=== PATIENT | female | born 1965 | race Caucasian/White ===

== ENCOUNTER 2018-07-01 15:55 | Emergency (ER) | payer OTHER ==
[2018-07-01 17:03] VITALS: BP 126/78
--- NOTE | 2018-07-01 17:18 | UC ---
Ear Complaint HPI - HPI Summary HPI Summary: 52 y/o female presents to the urgent care c/o B/L ear pain w/ a mild ringing sensation for the past week. Pt reports she had an URI about 3 weeks ago and Rx antibiotics for 1 week. She feels mild decrease hearing w/ pressure. She has mild nasal congestion. Pain is 2/10. Pt denies fever, dizziness, SOB, chest pain. abdominal pain, JOSEPH. - History of Current Complaint Chief Complaint: UCEar Stated Complaint: EAR ACHE Time Seen by Provider: 07/01/18 17:06 Hx Obtained From: Patient ?: No Onset/Duration: Gradual Onset, Lasting Weeks - 1 week, Still Present Severity Initially: Mild Severity Currently: Mild Pain Intensity: 3 Pain Scale Used: 0-10 Numeric Alleviating Factors: OTC Meds Associated Signs/Symptoms: Positive: URI Symptoms - Allergies/Home Medications Allergies/Adverse Reactions: Allergies Allergy/AdvReac Type Severity Reaction Status Date / Time No Known Allergies Allergy Verified 07/01/18 17:03 Home Medications: Home Medications Levothyroxine TAB* [Synthroid 25 MCG TAB*] 07/01/18 [History Confirmed 07/01/18 ] buPROPion TAB* [Wellbutrin TAB*] 07/01/18 [History] PMH/Surg Hx/FS Hx/Imm Hx Previously Healthy: Yes Endocrine History: Hypothyroidism - Surgical History Surgical History: None - Family History Known Family History: Positive: None - Pt denies FMHX - Social History Occupation: Employed Full-time Lives: With Family Alcohol Use: Rare Substance Use Type: None Smoking Status (MU): Current Every Day Smoker Type: Cigarettes Amount Used/How Often: 1/2 PPD Review of Systems All Other Systems Reviewed And Are Negative: Yes Constitutional: Positive: Negative Skin: Positive: Negative Eyes: Positive: Negative ENT: Positive: Ear Ache - B/L ear pain adn ringing of the ears, Nasal Discharge - clear, Sinus Congestion Respiratory: Positive: Negative Cardiovascular: Positive: Negative Gastrointestinal: Positive: Negative Genitourinary: Positive: Negative Motor: Positive: Negative Neurovascular: Positive: Negative Musculoskeletal: Positive: Negative Neurological: Positive: Negative Psychological: Positive: Negative Is Patient Immunocompromised?: No Physical Exam - Summary Physical Exam Summary: Vital signs: reviewed General: well developed, well nourished female sitting in the examining table w/ o any apparent distress Skin: [place], warm and dry, no evidence of atopic dermatitis, psoriasis, seborrhea. HEENT: -Head: atraumatic, non tender; no scalp dermatitis. -Eyes: sclera and conjunctiva clear, PERRLA, EOMI -Ears: no pre- or postauricular lymphadenopathy or erythema; RT external ear canal c.ear, Rt TM injected w/ erythema with erythema. Left external ear canal clear , LF TM WNL. -Nose/Face: erythematous and edematous nasal mucosa with clear rhinorrhea, no frontal or maxillary sinus tender to palpation. -Mouth/Throat: Mucous membrane moist, posterior pharynx clear, no erythema or exudates. Neck: supple, FROM, nontender, no lymphadenopathy, no meningismus. Chest: Clear to auscultation, normal breath sounds Abd: soft, Bowel sounds active, Nontender. Back: no spinal or CVAT Neuro: A&O x4, GCS 15, no focal neuro deficits, normal behavior for age. Triage Information Reviewed: Yes Vital Signs: Initial Vital Signs Temp 97.6 F 07/01/18 16:59 Pulse 61 07/01/18 16:59 Resp 16 07/01/18 16:59 BP 126/78 07/01/18 16:59 Pulse Ox 96 07/01/18 16:59 Ear Complaint Course/Dx - Course Course Of Treatment: 52 y/o female presents to the urgent care c/o B/L ear pain w/ a mild ringing sensation for the past week. Pt reports she had an URI about 3 weeks ago and Rx antibiotics for 1 week. She feels mild decrease hearing w/ pressure. She has mild nasal congestion. Pain is 2/10. Pt denies fever, dizziness, SOB, chest pain. abdominal pain, JOSEPH. Hx obtained. Pt w/ RT otitis media on examination. Pt Rx Amoxicillin PO and flonase as directed below. Pt advised to f/u w/her PCP or ENT Dr Hameed for further management on her symptoms if not improvement. D/C instructions explained. Pt understood and agreed w/ plan of care . - Differential Dx/Diagnosis Differential Diagnosis/HQI/PQRI: Cerumen Impaction, Otitis Externa, Otitis Media , Perforated TM, URI, Other - sinusitis Provider Diagnosis: Right otitis media, Rhinosinusitis Discharge - Sign-Out/Discharge Documenting (check all that apply): Patient Departure - D/C home All imaging exams completed and their final reports reviewed: No Studies - Discharge Plan Condition: Stable Disposition: HOME Prescriptions: Amoxicillin PO (*) [Amoxicillin 875 MG (*)] 875 mg PO BID #14 tab Fluticasone NASAL SPRAY 50MCG* [Flonase NASAL SPRAY 50MCG*] 2 spray BOTH NARES DAILY #1 btl Patient Education Materials: Ear Infection (ED) Referrals: Anton Hameed MD [Medical Doctor] - 1 Week Greg Bolton MD [Primary Care Provider] - 3 Days Additional Instructions: 1- Please increase fluid intake and rest. take full course of antibiotic to avoid resistance 2-Use Flonase as directed to help drain fluid. Also buy saline drops to clear sinuses 3- F/U w/ your PCP orn ENT Dr Hameed in 1 week if symptoms do not improve for further management and treatment - Billing Disposition and Condition Condition: STABLE Disposition: Home
== END 2018-07-01 17:41 | disposition home or self-care (01) ==
LOC: UCEAST 15:55
DX: H66.91 Otitis media, unspecified, right ear (principal); J32.9 Chronic sinusitis, unspecified; E03.9 Hypothyroidism, unspecified; F17.210 Nicotine dependence, cigarettes, uncomplicated
CPT/HCPCS: 99202; G0463

== ENCOUNTER 2018-07-26 14:49 | Emergency (ER) | payer OTHER ==
--- OUTSIDE RECORDS SUMMARY | 2018-07-26 15:40 | XMS REPORT | Continuity of Care Document ---
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 Tobacco Use Start: Unknown Current Cigarette Smoker 1/2 Pack Daily Tobacco Use Start: Unknown Never Smoked Cigars Tobacco Use Start: Unknown Never Smoked A Pipe Smokeless Tobacco Never Used Smokeless Tobacco ETOH Use Currently rarely consumes alcohol Tobacco Use Start: Unknown Patient is a current smoker, smokes every day Smoking Status Reviewed: 07/14/18 Patient is a current smoker, smokes every day Allergies, Adverse Reactions, Alerts Description No Known Drug Allergies Medications Medication Date Status Form Strength Qnty SIG Indications Ordering Provider Medrol 07/05/ Active TBPK 4mg 1pack take as Anton Hameed MD Bupropion HCL / Active Tablets ER 150mg Take 1 Unknown ER (SR) 0000 12HR Tablet By Mouth Two Times Daily Levothyroxine / Active Tablets 75mcg Take 1 Unknown Sodium 0000 Tablet By Mouth Every Day Before Breakfast Fluticasone / Active Suspension 50mcg/Act [place] 2 Unknown Propionate 0000 Sprays Into Each Nostril One Time Daily Amoxicillin / Active Tablets 875mg Take 1 Unknown 0000 Tablet By Mouth Two Times Daily For 7 Days Immunizations Description No Information Available Vital Signs Date Vital Result Comment 07/14/2018 10:06am Weight 128.00 lb Weight 58.061 kg Height 63 inches 5'3" Height in cm's 160.0 cm BMI (Body Mass Index) 22.7 kg/m2 07/05/2018 9:27am Weight 128.00 lb Weight 58.061 kg Height 63 inches 5'3" Height in cm's 160.0 cm BMI (Body Mass Index) 22.7 kg/m2 Results Description No Information Available Procedures Description No Information Available Encounters Type Date Location Provider Dx Diagnosis Office Visit 07/14/2018 Betty,After Anton Willard H93.13 Tinnitus, 10:15a 06/14/07 MD Yoseph bilateral H69.93 Unspecified Eustachian tube disorder, bilateral Office Visit 07/05/2018 9:30a Betty,Eliazar 06/14/07 Anton Willard H93.13 Tinnitus, MD Yoseph bilateral H69.93 Unspecified Eustachian tube disorder, bilateral Plan of Treatment No Information Available
--- OUTSIDE RECORDS SUMMARY | 2018-07-26 15:40 | XMS REPORT | Continuity of Care Document ---
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 Tobacco Use Start: Unknown Current Cigarette Smoker 1/2 Pack Daily Tobacco Use Start: Unknown Never Smoked Cigars Tobacco Use Start: Unknown Never Smoked A Pipe Smokeless Tobacco Never Used Smokeless Tobacco ETOH Use Currently rarely consumes alcohol Tobacco Use Start: Unknown Patient is a current smoker, smokes every day Smoking Status Reviewed: 07/05/18 Patient is a current smoker, smokes every day Allergies, Adverse Reactions, Alerts Description No Known Drug Allergies Medications Medication Date Status Form Strength Qnty SIG Indications Ordering Provider Bupropion HCL // Active Tablets ER 150mg Take 1 Unknown ER (SR) 0000 12HR Tablet By Mouth Two Times Daily Levothyroxine 00/ Active Tablets 75mcg Take 1 Unknown Sodium 0000 Tablet By Mouth Every Day Before Breakfast Fluticasone 00/ Active Suspension 50mcg/Act [place] 2 Unknown Propionate 0000 Sprays Into Each Nostril One Time Daily Amoxicillin // Active Tablets 875mg Take 1 Unknown 0000 Tablet By Mouth Two Times Daily For 7 Days Immunizations Description No Information Available Vital Signs Date Vital Result Comment 07/05/2018 9:27am Weight 128.00 lb Weight 58.061 kg Height 63 inches 5'3" Height in cm's 160.0 cm BMI (Body Mass Index) 22.7 kg/m2 Results Description No Information Available Procedures Description No Information Available Encounters Type Date Location Provider Dx Diagnosis Office Visit 07/05/2018 Betty,Eliazar Willard H93.13 Tinnitus, 9:30a 06/14/07 MD Yoseph bilateral H69.93 Unspecified Eustachian tube disorder, bilateral Plan of Treatment No Information Available
--- OUTSIDE RECORDS SUMMARY | 2018-07-26 15:40 | XMS REPORT | Continuity of Care Document ---
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 Tobacco Use Start: Unknown Current Cigarette Smoker 1/2 Pack Daily Tobacco Use Start: Unknown Never Smoked Cigars Tobacco Use Start: Unknown Never Smoked A Pipe Smokeless Tobacco Never Used Smokeless Tobacco ETOH Use Currently rarely consumes alcohol Tobacco Use Start: Unknown Patient is a current smoker, smokes every day Smoking Status Reviewed: 07/22/18 Patient is a current smoker, smokes every day Allergies, Adverse Reactions, Alerts Description No Known Drug Allergies Medications Medication Date Status Form Strength Qnty SIG Indications Ordering Provider Bupropion HCL / Active Tablets ER 150mg Take 1 Unknown ER (SR) 0000 12HR Tablet By Mouth Two Times Daily Levothyroxine / Active Tablets 75mcg Take 1 Unknown Sodium 0000 Tablet By Mouth Every Day Before Breakfast Fluticasone / Active Suspension 50mcg/Act [place] 2 Unknown Propionate 0000 Sprays Into Each Nostril One Time Daily Medrol 07/05/ Hx TBPK 4mg 1pack take as Anton Hameed 07/22/ MD [place] Amoxicillin / Hx Tablets 875mg Take 1 Unknown 0000 - Tablet By Two 2019 Times Daily For 7 Days Immunizations Description No Information Available Vital Signs Date Vital Result Comment 07/22/2018 10:22am Weight 128.00 lb Weight 58.061 kg Height 63 inches 5'3" Height in cm's 160.0 cm BMI (Body Mass Index) 22.7 kg/m2 07/14/2018 10:06am Weight 128.00 lb Weight 58.061 kg Height 63 inches 5'3" Height in cm's 160.0 cm BMI (Body Mass Index) 22.7 kg/m2 07/05/2018 9:27am Weight 128.00 lb Weight 58.061 kg Height 63 inches 5'3" Height in cm's 160.0 cm BMI (Body Mass Index) 22.7 kg/m2 Results Description No Information Available Procedures Date Code Description Status 07/14/2018 60029 Tympanometry Completed 07/14/2018 80711 Comprehensive Audiogram Completed Encounters Type Date Location Provider Dx Diagnosis Office Visit 07/22/2018 Seney,After Stephy Au H69.93 Unspecified 10:15a 06/14/07 SHARON Eustachian tube disorder, bilateral H93.13 Tinnitus, bilateral G50.1 Atypical facial pain R53.83 Other fatigue R63.4 Abnormal weight loss Office Visit 07/14/2018 10:15a Betty,After 06/14/07 Anton Willard H93.13 Yoseph Uribe MD bilateral H69.93 Unspecified Eustachian tube disorder, bilateral Office Visit 07/05/2018 9:30a Betty,After 06/14/07 Anton Morris3.13 Yoseph Uribe MD bilateral H69.93 Unspecified Eustachian tube disorder, bilateral Plan of Treatment 07/22/2018 - ALICIA StoryCH69.93 Unspecified Eustachian tube disorder, bilateralNew Labs:C Reactive Protein, Ordered: 07/22/18Erythrocyte Sed Rate, Ordered: 07/22/18CBC Auto Diff, Ordered: 07/22/18Magnesium, Ordered: Vitamin B12, Ordered: 07/22/18H93.13 Tinnitus, bilateralNew Labs:Connective Tissue Panel, Ordered: 07/22/18G50.1 Atypical facial painR53.83 Other [id number] Abnormal weight loss
--- NOTE | 2018-07-26 16:06 | ED ---
Throat Pain/Nasal Congestion - HPI Summary HPI Summary: Pt is a 52 y/o female who presents to the ED c/o sinus pressure. 1 month ago she began to have tinnitus and went to the , where she was told she had an ear infection. 3 weeks ago she went to a follow up ENT appointment, and was told that she did not have an ear infection and was put on antibiotics. Pt now today reports sinus pressure, ear pain, eye pressure, and left-sided occipital JOSEPH. She denies any dysphagia, fever, nasal discharge, difficulty with balance, or difficulty processing information. The pain is rated a 6/10 in severity, and she describes the tinnitus as pulsating. She has been taking Aleve for her sx. Pt denies taking daily ASA. She is a smoker. - History of Current Complaint Chief Complaint: EDGeneral Time Seen by Provider: 07/26/18 15:53 Hx Obtained From: Patient Onset/Duration: Lasting Weeks - 1 month, Still Present Associated Signs And Symptoms: Positive: Sinus Discomfort. Negative: Dysphagia , Nasal Discharge Cough: None Related History: Smoking - Allergies/Home Medications Allergies/Adverse Reactions: Allergies Allergy/AdvReac Type Severity Reaction Status Date / Time No Known Allergies Allergy Verified 07/01/18 17:03 PMH/Surg Hx/FS Hx/Imm Hx Endocrine/Hematology History: Reports: Hx Thyroid Disease - Hypo Musculoskeletal History: Reports: Hx of Fracture(s) - left foot Infectious Disease History: No Infectious Disease History: Denies: Traveled Outside the [place] in Last 30 Days - Family History Known Family History: Negative: Other - brain aneurysm, brain CA - Social History Alcohol Use: Rare Hx Substance Use: No Substance Use Type: Reports: None Hx Tobacco Use: Yes Smoking Status (MU): Current Every Day Smoker Type: Cigarettes Amount Used/How Often: 1/2 PPD Review of Systems Negative: Fever Positive: Other - Pain Positive: Ear Ache, Other - Tinnitus, sinus pressure, NEGATIVE: dysphagia. Negative: Nasal Discharge Neurological: Other - NEGATIVE: balance issues, processing issues Positive: Headache - left occipital All Other Systems Reviewed And Are Negative: Yes Physical Exam - Summary Physical Exam Summary: Appearance: Well appearing, no pain distress Skin: warm, dry, reflects adequate perfusion Head/face: normal Eyes: EOMI, DEREK ENT: mucous membranes moist, sinus pain and pressure with tinnitus Neck: supple, swollen non-tender right anterior cervical lymph node Respiratory: CTA, breath sounds present Cardiovascular: RRR, pulses symmetrical Abdomen: non-tender, soft Bowel Sounds: present Musculoskeletal: normal, strength/ROM intact Neuro: normal, sensory motor intact, A&Ox3, left-sided occipital headache GCS: 15 Triage Information Reviewed: Yes Vital Signs On Initial Exam: Initial Vitals Temp Pulse Resp BP Pulse Ox 97.7 F 88 16 138/78 99 07/26/18 14:51 07/26/18 14:51 07/26/18 14:51 07/26/18 14:51 07/26/18 14:51 Vital Signs Reviewed: Yes Diagnostics - Vital Signs Vital Signs Temp Pulse Resp BP Pulse Ox 07/26/18 14:51 97.7 F 88 16 138/78 99 - Laboratory Lab Statement: Any lab studies that have been ordered have been reviewed, and results considered in the medical decision making process. - CT Brain CT CT Interpretation Completed By: Radiologist Summary of CT Findings: Mild right-sided paranasal sinus mucosal disease in this otherwise nonacute CT of the brain. ED physician reviewed radiology report. Sinuses CT CT Interpretation Completed By: Radiologist Summary of CT Findings: There is mild to moderate campbell paranasal sinus mucosal disease as described above that appears to spare the frontal sinuses. ED physician reviewed radiology report. Re-Evaluation - Re-Evaluation First Eval Re-Evaluation Time: 17:07 Change: Unchanged Comment: Discussed CT results with pt. EENT Course/Dx - Course Course Of Treatment: Nurse's notes reviewed. Patient with tinnitus and discomfort behind the eyes. This proved to be sphenoid and ethmoid sinusitis. Head CT negative. She was placed on Augmentin and Mucinex and will follow-up with ENT/primary care physician. - Differential Diagnoses Differential Diagnoses: Other - Acute sinusitis, tinnitus, medication reaction, tumor, Mnire's disease - Diagnoses Provider Diagnoses: Sphenoidal sinusitis, Ethmoid sinusitis Discharge - Sign-Out/Discharge Documenting (check all that apply): Patient Departure - Discharge Patient Received Moderate/Deep Sedation with Procedure: No - Discharge Plan Condition: Stable Disposition: HOME Prescriptions: Amoxicillin/Clavulanate TAB* [Augmentin TAB 875*] 875 mg PO BID #20 tab guaiFENesin [Mucinex] 600 mg PO BID #20 tab.er.12h Patient Education Materials: Sinusitis (ED), Tinnitus (ED) Referrals: Greg Bolton MD [Primary Care Provider] - Additional Instructions: Drink plenty of fluids. Ibuprofen may help discomfort. Follow-up with ENT, primary care doctor. Return with high fever, increased discomfort, worse, new symptoms or other concerns. - Billing Disposition and Condition Condition: STABLE Disposition: Home - Attestation Statements Document Initiated by Scribe: Yes Documenting Scribe: [place] Provider For Whom Scribe is Documenting (Include Credential): Wayne Moreno MD Scribe Attestation: Aspen [place], scribed for Wayne Moreno MD on 07/26/18 at 1804. Scribe Documentation Reviewed: Yes Provider Attestation: The documentation as recorded by the Aspen malik accurately reflects the service I personally performed and the decisions made by Wayne pineda MD Status of Scribe Document: Viewed
[2018-07-26 17:10] VITALS: BP 129/81
== END 2018-07-26 17:09 | disposition home or self-care (01) ==
LOC: ED 14:49
DX: J32.3 Chronic sphenoidal sinusitis (principal); J32.2 Chronic ethmoidal sinusitis; H93.19 Tinnitus, unspecified ear; H92.09 Otalgia, unspecified ear; R51 Headache; F17.210 Nicotine dependence, cigarettes, uncomplicated
CPT/HCPCS: 70450; 70486; 99282